=== PATIENT | male | born 2000 | race African-American/Black ===

== ENCOUNTER 2020-03-16 00:45 | Emergency (ER) | payer SELFPAY ==
[~2020-03-16] VITALS: Ht 170.2 cm; Wt 77.1 kg
[2020-03-16] MEDS ORDERED: IBUPROFEN IB200 MG PO (01:19)
[2020-03-16] MEDS ORDERED: ACETAMINOPHEN500 MG PO (01:19)
[2020-03-16] MEDS ORDERED: CLINDAMYCIN HC300 MG PO (01:19)
[2020-03-16] MEDS ORDERED: DOXYCYCLINE HY100 MG PO (01:19)
[2020-03-16] MEDS ORDERED: KETOROLAC TROMETHAMINE 30 MG/ML VIAL IM ONE (02:15)
[2020-03-16] MEDS ORDERED: ONDANSETRON HCL 4 MG ORAL DISINTEGRATING TAB PO ONE (02:15)
[2020-03-16] MEDS ORDERED: HYDROCODONE/APAP 5MG-325MG TAB PO ONE (02:15)
[2020-03-16] MEDS ORDERED: HYDROCODONE/APAP 5MG-325MG TAB ONE (02:17)
[2020-03-16] MEDS ORDERED: KETOROLAC TROMETHAMINE 30 MG/ML VIAL ONE (02:17)
[2020-03-16] MEDS ORDERED: ONDANSETRON HCL 4 MG ORAL DISINTEGRATING TAB ONE (02:17)
== END 2020-03-16 02:30 | disposition home or self-care (01) ==
LOC: FSED 01:13
DX: L05.01 Pilonidal cyst with abscess (principal)
CPT/HCPCS: 10081; 99283; J1885; Q0162